=== PATIENT | male | born 1995 | race African-American/Black ===

== ENCOUNTER 2016-07-28 19:58 | Emergency (ER) | payer SELFPAY ==
[2016-07-28] MEDS ORDERED: TYLENOL 325 MG PO STA (20:18)
[2016-07-28] MEDS ORDERED: TYLENOL 325 MG ONE (20:22)
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
[2016-07-28 21:48] VITALS: BP 122/77; PULSE 62; O2SAT 100
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
== END 2016-07-28 21:48 | disposition home or self-care (01) ==
LOC: ED 19:58
DX: R51 Headache (principal); V43.52XA Car driver injured in collision with other type car in traffic accident, initial encounter
CPT/HCPCS: 70450; 99283